=== PATIENT | male | born 1970 | race Caucasian/White ===

== ENCOUNTER 2016-06-12 07:41 | Emergency (ER) | payer OTHER ==
[2016-06-12 07:51] VITALS: RESP 18
[2016-06-12] MEDS ORDERED: DIPH,PERTUS(ACELL)TETVAC-LF 0.5 ML VIAL IM ONE (08:21)
--- NOTE | 2016-06-12 08:34 | ED ---
Fall HPI - General Chief Complaint: Fall Stated Complaint: Fall, [facility] Time Seen by Provider: 06/12/16 08:01 Source: patient, EMS, RN notes reviewed Mode of arrival: EMS Limitations: no limitations - History of Present Illness Initial Comments: 45-year-old male presents emergency Department via EMS with chief complaint of fall head injury. Patient states he was in the back of the semi-unloading and states that he lost his balance fell out to ground. Patient states that he woke up to EMS. Patient complains of headache, facial pain. Patient states that his tetanus is not up-to-date. Patient states he does have some neck discomfort. Denies any back pain, upper extremity injury or pelvis pain. Patient states she does have mild left knee pain but states this feels achy. Patient states did not pass out prior to falling states he remembers falling off the back. Patient denies any chest pain or shortness of breath. - Related Data Home Medications Medication Instructions Recorded Confirmed Gabapentin [Neurontin] 100 mg PO HS 06/12/16 06/12/16 Previous Rx's Medication Instructions Recorded HYDROcodone/APAP 7.5-325MG [[place] 1 tab PO Q6HR PRN #20 tab 06/12/16 7.5-325] Allergies Allergy/AdvReac Type Severity Reaction Status Date / Time Penicillins Allergy Rash/Hives Verified 06/12/16 08:21 Review of Systems ROS Statement: Those systems with pertinent positive or pertinent negative responses have been documented in the HPI. ROS Other: All systems not noted in ROS Statement are negative. Past Medical History Past Medical History: Pneumonia Additional Past Medical History / Comment(s): sciatic pain History of Any Multi-Drug Resistant Organisms: None Reported Past Surgical History: No Surgical Hx Reported Past Psychological History: Depression Smoking Status: Current every day smoker Past Alcohol Use History: None Reported Past Drug Use History: None Reported General Exam Limitations: no limitations General appearance: alert, in no apparent distress Head exam: Present: atraumatic, normocephalic. Absent: normal inspection ( Multiple abrasions noted) Eye exam: Present: PERRL, EOMI, periorbital swelling (Large hematoma noted of the right leg, upper eyelid and right forehead region), periorbital tenderness ( Right superior orbital region). Absent: normal appearance, scleral icterus, conjunctival injection ENT exam: Present: normal oropharynx, mucous membranes moist, TM's normal bilaterally, normal external ear exam, other (old dry blood noted in the right nostril some in the left). Absent: normal exam Neck exam: Present: normal inspection, tenderness (Mild tenderness to cervical spine no step-off deformity). Absent: meningismus, full ROM (Patient in a c- collar), lymphadenopathy Respiratory exam: Present: normal lung sounds bilaterally. Absent: respiratory distress, wheezes, rales, rhonchi, stridor, chest wall tenderness Cardiovascular Exam: Present: regular rate, normal rhythm, normal heart sounds. Absent: systolic murmur, diastolic murmur, rubs, gallop, clicks GI/Abdominal exam: Present: soft, normal bowel sounds. Absent: distended, tenderness, guarding, rebound, rigid Extremities exam: Present: normal inspection, full ROM, normal capillary refill. Absent: tenderness, pedal edema, joint swelling, calf tenderness Back exam: Present: full ROM. Absent: tenderness Neurological exam: Present: alert, oriented X3, CN II-XII intact, reflexes normal. Absent: motor sensory deficit Skin exam: Present: warm, dry, intact, normal color. Absent: rash Course Vital Signs 06/12/16 06/12/16 07:47 08:05 Temperature 97.6 F Pulse Rate 74 92 Respiratory 18 18 Rate Blood Pressure 182/113 181/107 O2 Sat by Pulse 99 97 Oximetry Medical Decision Making - Medical Decision Making [age] male present emergency Department chief complaint fall off semi-. Patient did have a loss consciousness after head injury. Patient has concussion based on symptoms. Patient's CT does not show any acute intracranial bleed. Patient does have a nondisplaced nasal bone fracture. Patient we followed up with ENT. Return parameters were discussed. Disposition Clinical Impression: Fall, Concussion with loss of consciousness, Nasal bone fracture, Facial hematoma Disposition: HOME SELF-CARE Condition: Stable Instructions: Concussion (ED) Additional Instructions: Please return to the Emergency Department if symptoms worsen or any other concerns. Prescriptions: HYDROcodone/APAP 7.5-325MG [[place] 7.5-325] 1 tab PO Q6HR PRN #20 tab PRN Reason: Pain Time of Disposition: 09:46
--- NOTE | 2016-06-12 09:09 | CT ---
EXAMINATION TYPE: CT brain evonne mckinnon DATE OF EXAM: 06/12/2016 8:58 AM COMPARISON: NONE HISTORY: Pain CT Brain: Unenhanced CT of the brain was performed. The ventricles, basal cisterns and sulci overlying the cerebral convexities demonstrate a normal appe arance. There is no evidence for intracranial hemorrhage or sulcal effacement. No mass effects are seen. If symptoms persist consider MRI. Osseous calvarium is intact. Moderate right frontal scalp h ematoma is identified. IMPRESSION: No acute intracranial process CT Cervical Spine: Unenhanced CT of the cervical spine was performed with bone and soft tissue window settings submitted . Coronal and sagittal reconstruction is obtained. There is normal alignment and prevertebral soft tissues. I do not see evidence for fracture or sublu xation. No significant degenerative changes are present. The lung apices are clear. IMPRESSION: No evidence for acute fracture or subluxation of the cervical spine.
[2016-06-12] MEDS ORDERED: HYDROcodone/APAP 7.5-325MG 1 EACH TAB PO ONE (09:11)
--- NOTE | 2016-06-12 09:18 | CT ---
EXAMINATION TYPE: CT facial bones wo con DATE OF EXAM: 06/12/2016 8:58 AM COMPARISON: NONE HISTORY: Pain Unenhanced CT of the facial bones was performed in the axial and coronal planes. Bone and soft tissu e window settings are submitted. There is right periorbital soft tissue edema noted. Nondisplaced right nasal bone fracture. No additional evidence for displaced facial bone fracture or depressed facial bone fracture. The globes are intact. Paranasal sinuses are moderately opacified left greater than right. IMPRESSION: 1. Nondisplaced right nasal bone fracture.
[2016-06-12 10:01] VITALS: BP 157/94; PULSE 89; TEMP 97.9
== END 2016-06-12 10:15 | disposition home or self-care (01) ==
LOC: EC 07:41
DX: S06.0X9A Concussion with loss of consciousness of unspecified duration, initial encounter (principal); S02.2XXA Fracture of nasal bones, initial encounter for closed fracture; M25.562 Pain in left knee; S00.83XA Contusion of other part of head, initial encounter; Z79.899 Other long term (current) drug therapy; Z88.0 Allergy status to penicillin; F17.200 Nicotine dependence, unspecified, uncomplicated; Z23 Encounter for immunization; W17.89XA Other fall from one level to another, initial encounter; Y93.89 Activity, other specified; Y92.812 Truck as the place of occurrence of the external cause
CPT/HCPCS: 70450; 70486; 72125; 90471; 90715; 99284